=== PATIENT | male | born 1995 | race Caucasian/White ===

== ENCOUNTER 2019-01-21 11:03 | Inpatient (IN) | payer BC, OTHER, SELFPAY ==
[2019-01-21] MEDS ORDERED: Acetaminophen 325 MG TAB PO PRN (13:52)
[2019-01-21] MEDS ORDERED: Baclofen 10 MG TAB PO PRN (14:08)
[2019-01-21 15:59] LABS: Troponin I Less than 0.010 ng/mL (< 0.028)
[2019-01-21] MEDS: metroNIDAZOLE 500 MG TAB PO SCH ×2 (16:00→19:51)
[2019-01-21] MEDS: Cefepime 2 GM in Sodium Chloride 0.9% 100 ML IVPB SCH (17:03)
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
[2019-01-22] MEDS: Cefepime 2 GM in Sodium Chloride 0.9% 100 ML IVPB SCH ×3 (00:40→16:38)
[2019-01-22 07:01] LABS: #Basophils 0.1 thou/uL (0.0-0.2); #Eosinphils 0.2 thou/uL (0.0-0.7); #Lymphocytes 1.6 thou/uL (1.20-3.40); #Monocytes 0.3 thou/uL (0.11-0.59); #Neutrophils 4.6 thou/uL (1.40-6.50); %Basophils 0.8 % (0.0-1.0); %Eosinophils 2.6 % (0.0-10.0); %Lymphocytes 23.7 % (21.0-51.0); %Monocytes 4.8 % (0.0-10.0); %Neutrophils 68.1 % (42.0-75.0); Mean Corpuscular HGB CONC 32.8 g/dL (32.0-36.0); Mean Corpuscular Hemoglobin 27.5 pg (27.0-31.0); Mean Corpuscular Volume 83.9 fL (78.0-98.0); Mean Platelet Volume 8.4 fL (7.4-10.4); Platelet Count 260 thou/uL (130-400); RBC Distribution Width 16.9 % (11.5-14.5); Red Blood Cell (RBC) Count 4.38 mill/uL (4.70-6.10); White Blood Cell (WBC) Count 6.8 thou/uL (4.8-10.8)
[2019-01-22 07:19] LABS: Anion Gap 12 mmol/L (10-20); BUN (Urea Nitrogen) 5 mg/dL (8.9-20.6); Calc. Creatinine Clearance 235 mL/min (70-130); Calcium 8.9 mg/dL (7.8-10.44); Carbon Dioxide 24 mmol/L (22-29); Chloride 105 mmol/L (98-107); Estimated GFR-MDRD Greater than 90; Glucose 102 mg/dL (70-105); Potassium 3.4 mmol/L (3.5-5.1); Sodium 138 mmol/L (136-145)
[2019-01-22] MEDS ORDERED: Carvedilol 3.125 MG TAB PO SCH (08:00)
[2019-01-22] MEDS: Citalopram 20 MG TAB PO SCH (08:18)
[2019-01-22] MEDS: Enoxaparin Sodium 40 MG/0.4 ML SYRINGE SC SCH (08:18)
[2019-01-22] MEDS: Fluconazole 100 MG TAB PO SCH (08:19)
[2019-01-22] MEDS: metroNIDAZOLE 500 MG TAB PO SCH ×3 (08:19→20:41)
[2019-01-22 12:25] VITALS: BMI 33.0
[2019-01-22] MEDS: Furosemide 40 MG/4 ML VIAL SLOW IVP SCH (14:21)
--- NOTE | 2019-01-22 16:46 | PDOC.PN ---
- Subjective Encounter Start Date: 01/22/19 Encounter Start Time: 08:20 Pt seen for followup re: acute hypoxic respiratory failure. Says he feels better. Cough+, small amount of whitish sputum. - Objective Resuscitation Status - Order Detail: 01/21/19 13:52 Resuscitation Status Routine Resuscitation Status: FULL: Full Resuscitation MAR Reviewed: Yes Vital Signs & Weight: Vital Signs (12 hours) Temp Pulse Resp BP Pulse Ox 01/22/19 15:45 97.5 F L 122 H 19 129/86 95 01/22/19 11:21 99.1 F 120 H 18 121/79 97 01/22/19 07:46 92 L 01/22/19 07:05 97.7 F 124 H 20 130/89 92 L Weight Admit Weight 221 lb Weight 217 lb 9.6 oz I&O: 01/21/19 01/22/19 01/23/19 06:59 06:59 06:59 Intake Total 580 Output Total 500 Balance 80 Result Diagrams: 01/22/19 06:36 01/22/19 06:36 EKG Reviewed by me: Yes (Tele: sinus tachycardia) Phys Exam - Physical Examination Obese HEENT: moist MMs Neck: supple Laith crackles S1, S2, reg, tachy Gastrointestinal: soft Neurological: moves all 4 limbs Psychiatric: normal affect Deviation from normal: abdominal wounds as documented Dx/Plan (1) Acute respiratory failure with hypoxia Code(s): J96.01 - ACUTE RESPIRATORY FAILURE WITH HYPOXIA Status: Acute Comment: secondary to pulmonary edema (2) Pulmonary edema Code(s): J81.1 - CHRONIC PULMONARY EDEMA Status: Acute Comment: continue furosemide. 2D echo pending (3) Open abdominal wall wound Code(s): S31.109A - UNSP OPN WND ABD WALL, UNSP Q W/O PENET PERIT CAV, INIT Status: Chronic Comment: continue cefepime, diflucan and metronidazole - Plan continue antibiotics * . Review of Systems - Review of Systems Respiratory: Cough, SOB with Excertion, Sputum. negative: Dry, Shortness of Breath, Hemoptysis, Pleuritic Pain, Wheezing Cardiovascular: negative: chest pain, palpitations, orthopnea, paroxysmal nocturnal dyspnea, edema, light headedness - Medications/Allergies Allergies/Adverse Reactions: Allergies Allergy/AdvReac Type Severity Reaction Status Date / Time No Known Allergies Allergy Verified 01/21/19 15:36 Medications: Current Medications Acetaminophen (Tylenol) 650 mg PO Q4H PRN PRN Reason: Headache/Fever/Mild Pain (1-3) Last Admin: 01/21/19 16:00 Dose: 650 mg Baclofen (Lioresal) 10 mg PO TID PRN PRN Reason: Muscle Spasm Carvedilol (Coreg) 3.125 mg PO BID-[facility] Last Admin: 01/22/19 16:50 Dose: 3.125 mg Citalopram Hydrobromide (Celexa) 20 mg PO DAILY [facility] Last Admin: 01/22/19 08:18 Dose: 20 mg Enoxaparin Sodium (Lovenox) 40 mg SC 0900 [facility] Last Admin: 01/22/19 08:18 Dose: 40 mg Fluconazole (Diflucan) 600 mg PO DAILY [facility] Last Admin: 01/22/19 08:19 Dose: 600 mg Furosemide (Lasix) 40 mg SLOW IVP 0600,1400 [facility] Last Admin: 01/22/19 14:21 Dose: 40 mg Cefepime HCl 2 gm/ Sodium (Chloride) 100 mls @ 200 mls/hr IVPB 0100,0900,1700 [facility] Last Admin: 01/22/19 16:38 Dose: 100 mls Metronidazole (Flagyl) 500 mg PO TID [facility] Last Admin: 01/22/19 14:21 Dose: 500 mg
[2019-01-22] MEDS: Carvedilol 3.125 MG TAB PO SCH (16:50)
[2019-01-22] MEDS ORDERED: traZODone HCl 50 MG TAB PO PRN (23:40)
[2019-01-23 04:44] LABS: Cardiac Risk 5.9 (Less than 4.5)
[2019-01-23] MEDS: Furosemide 40 MG/4 ML VIAL SLOW IVP SCH ×2 (05:30→15:10)
--- NOTE | 2019-01-23 07:58 | RAD ---
RADIOGRAPH CHEST 1 VIEW: DATE: 01/23/2019 TIME: 7:40 AM HISTORY: 23-year-old male with pulmonary edema COMPARISON: 01/21/2019 FINDINGS: There has been dramatic interval improvement in the diffuse severe mixed interstitial and alveolar in filtrates. Now, there are mild residual interstitial densities in the right lung and left base. Right hilum remains enlarged. Right-sided PICC remains. No pneumothorax. IMPRESSION: 1. Dramatic interval improvement in the previously severe diffuse infiltrates, which may have represe nted pulmonary edema, pneumonia, or combination of both. 2. Right hilar enlargement.
[2019-01-23] MEDS: Citalopram 20 MG TAB PO SCH (08:33)
[2019-01-23] MEDS: Carvedilol 3.125 MG TAB PO SCH ×2 (08:33→18:16)
[2019-01-23] MEDS: Fluconazole 100 MG TAB PO SCH (08:33)
[2019-01-23] MEDS: metroNIDAZOLE 500 MG TAB PO SCH ×3 (08:33→20:39)
[2019-01-23] MEDS: Enoxaparin Sodium 40 MG/0.4 ML SYRINGE SC SCH ×2 (08:33→08:39)
[2019-01-23] MEDS: Cefepime 2 GM in Sodium Chloride 0.9% 100 ML IVPB SCH ×3 (08:37→18:11)
[2019-01-23] MEDS ORDERED: Sacubitril 24.5 MG/Valsartan 25.5 MG TABLET PO SCH (09:00)
[2019-01-23 10:38] LABS: #Basophils 0.1 thou/uL (0.0-0.2); #Eosinphils 0.1 thou/uL (0.0-0.7); #Lymphocytes 1.6 thou/uL (1.20-3.40); #Monocytes 0.4 thou/uL (0.11-0.59); #Neutrophils 3.6 thou/uL (1.40-6.50); %Basophils 1.2 % (0.0-1.0); %Eosinophils 2.2 % (0.0-10.0); %Lymphocytes 27.4 % (21.0-51.0); %Monocytes 6.3 % (0.0-10.0); Hemoglobin 12.9 g/dL (14.0-18.0); Mean Corpuscular HGB CONC 32.7 g/dL (32.0-36.0); Mean Corpuscular Hemoglobin 26.4 pg (27.0-31.0); Mean Corpuscular Volume 80.8 fL (78.0-98.0); Mean Platelet Volume 8.1 fL (7.4-10.4); Platelet Count 304 thou/uL (130-400); RBC Distribution Width 16.9 % (11.5-14.5); Red Blood Cell (RBC) Count 4.89 mill/uL (4.70-6.10); White Blood Cell (WBC) Count 5.8 thou/uL (4.8-10.8)
[2019-01-23 10:56] LABS: Anion Gap 14 mmol/L (10-20); BUN (Urea Nitrogen) 6 mg/dL (8.9-20.6); Calc. Creatinine Clearance 207 mL/min (70-130); Calcium 9.2 mg/dL (7.8-10.44); Carbon Dioxide 27 mmol/L (22-29); Chloride 101 mmol/L (98-107); Estimated GFR-MDRD Greater than 90; Glucose 128 mg/dL (70-105); Sodium 139 mmol/L (136-145)
--- NOTE | 2019-01-23 14:06 | PDOC.PN ---
- Subjective Encounter Start Date: 01/23/19 Encounter Start Time: 07:20 Pt seen for followup re: pulmonary edema. Feels well, no complaints. - Objective Resuscitation Status - Order Detail: 01/21/19 13:52 Resuscitation Status Routine Resuscitation Status: FULL: Full Resuscitation Vital Signs & Weight: Vital Signs (12 hours) Temp Pulse Resp BP Pulse Ox 01/23/19 08:00 98.7 F 105 H 17 115/80 95 01/23/19 04:00 98.6 F 112 H 21 H 121/84 97 Weight Admit Weight 221 lb Weight 217 lb 9.6 oz I&O: 01/22/19 01/23/19 01/24/19 06:59 06:59 06:59 Intake Total 580 1800 Output Total 500 2625 Balance 80 -825 Result Diagrams: 01/23/19 10:20 01/23/19 10:20 Phys Exam - Physical Examination Constitutional: NAD HEENT: moist MMs Neck: supple Respiratory: clear to auscultation bilateral Cardiovascular: RRR Gastrointestinal: soft Neurological: moves all 4 limbs Psychiatric: normal affect Deviation from normal: abdominal wounds Dx/Plan (1) Pulmonary edema Code(s): J81.1 - CHRONIC PULMONARY EDEMA Status: Acute Comment: Improved, on furosemide (2) Cardiomyopathy Code(s): I42.9 - CARDIOMYOPATHY, UNSPECIFIED Status: Acute Comment: continue Coreg, Entresto. Pt awaiting LifeVest. (3) Open abdominal wall wound Code(s): S31.109A - UNSP OPN WND ABD WALL, UNSP Q W/O PENET PERIT CAV, INIT Status: Chronic Comment: on cefepime, diflucan and metronidazole (4) Acute respiratory failure with hypoxia Code(s): J96.01 - ACUTE RESPIRATORY FAILURE WITH HYPOXIA Status: Resolved - Plan * . Review of Systems - Review of Systems Respiratory: negative: Cough, Shortness of Breath, SOB with Excertion, Pleuritic Pain, Wheezing Cardiovascular: negative: chest pain, palpitations, orthopnea, paroxysmal nocturnal dyspnea, edema, light headedness - Medications/Allergies Allergies/Adverse Reactions: Allergies Allergy/AdvReac Type Severity Reaction Status Date / Time No Known Allergies Allergy Verified 01/21/19 15:36 Medications: Current Medications Acetaminophen (Tylenol) 650 mg PO Q4H PRN PRN Reason: Headache/Fever/Mild Pain (1-3) Last Admin: 01/21/19 16:00 Dose: 650 mg Baclofen (Lioresal) 10 mg PO TID PRN PRN Reason: Muscle Spasm Carvedilol (Coreg) 3.125 mg PO BID-[facility] Last Admin: 01/23/19 08:33 Dose: 3.125 mg Citalopram Hydrobromide (Celexa) 20 mg PO DAILY [facility] Last Admin: 01/23/19 08:33 Dose: 20 mg Enoxaparin Sodium (Lovenox) 40 mg SC 0900 [facility] Last Admin: 01/23/19 08:39 Dose: Not Given Fluconazole (Diflucan) 600 mg PO DAILY [facility] Last Admin: 01/23/19 08:33 Dose: 600 mg Furosemide (Lasix) 40 mg SLOW IVP 0600,1400 [facility] Last Admin: 01/23/19 05:30 Dose: 40 mg Cefepime HCl 2 gm/ Sodium (Chloride) 100 mls @ 200 mls/hr IVPB 0100,0900,1700 [facility] Last Admin: 01/23/19 08:37 Dose: 100 mls Metronidazole (Flagyl) 500 mg PO TID [facility] Last Admin: 01/23/19 08:33 Dose: 500 mg Sacubitril/Valsartan (Entresto 24.5 Mg-25.5 Mg Tablet) 0.5 tab PO BID [facility] Last Admin: 01/23/19 09:32 Dose: 0.5 tab Trazodone HCl (Desyrel) 50 mg PO HS PRN PRN Reason: Insomnia Last Admin: 01/22/19 23:56 Dose: 50 mg
[2019-01-23] MEDS: Potassium Chloride 20 MEQ TAB PO SCH ×2 (15:09→18:16)
[2019-01-23 18:23] VITALS: BP 117/75; TEMP 98.1
[2019-01-23 20:01] LABS: Potassium 3.3 mmol/L (3.5-5.1)
== END 2019-01-23 20:40 | disposition left against medical advice (07) | DRG 189 ==
LOC: ERS 11:03 → 2NO 15:18
PROVIDERS: ADMIT Internal Medicine; ATTEND Internal Medicine
DX: J96.01 Acute respiratory failure with hypoxia (principal); J81.1 Chronic pulmonary edema; I42.9 Cardiomyopathy, unspecified; D63.8 Anemia in other chronic diseases classified elsewhere; S31.109D Unspecified open wound of abdominal wall, unspecified quadrant without penetration into peritoneal cavity, subsequent encounter; F17.210 Nicotine dependence, cigarettes, uncomplicated; V86.99XD Unspecified occupant of other special all-terrain or other off-road motor vehicle injured in nontraffic accident, subsequent encounter
CPT/HCPCS: 36415; 71045; 80048; 80061; 85025; 93005; 93306; J0692; J1650; J1940; J3490